=== PATIENT | male | born 1955 ===

== ENCOUNTER → 2019-12-02 | Outpatient (CLI) | payer OTHER ==
[2019-12-02 17:54] LABS: BASOPHIL # 0.1 10^3/uL (0.0-0.1); BASOPHIL % 0.9 % (0.0-0.2); EOSINOPHIL # 0.2 10^3/uL (0.0-0.2); EOSINOPHIL % 2.7 % (0.0-5.0); LYMPHOCYTES # 2.13 10^3/uL1 (1.0-4.8); LYMPHOCYTES % 26.4 % (24.0-44.0); MEAN CORP HGB 28.3 pg (26-34); MONOCYTES # 0.6 10^3/uL (0.3-0.8); MONOCYTES % 7.3 % (5.0-12.0); NEUTROPHILS % 62.3 % (41.0-85.0); PLATELET COUNT 279 10^3/uL (150-400); RED CELL DISTRIBUTION WIDTH 17.1 % (11.5-14.5)
[2019-12-02 17:57] LABS: CALCIUM 9.2 mg/dL (8.4-10.5); CARBON DIOXIDE 29.8 mmol/L (20.0-32)
== END | disposition home or self-care (01) ==
LOC: NPLAB 17:04
PROVIDERS: ATTEND Internal Medicine
DX: J44.9 Chronic obstructive pulmonary disease, unspecified (principal); R56.1 Post traumatic seizures; I69.30 Unspecified sequelae of cerebral infarction; E11.9 Type 2 diabetes mellitus without complications
CPT/HCPCS: 36415; 80048; 80177; 85025

== ENCOUNTER → 2020-06-18 | Outpatient (CLI) | payer OTHER | END | disposition home or self-care (01) | LOC: NPLAB 14:50 | PROVIDERS: ATTEND Internal Medicine | DX: R89.5 Abnormal microbiological findings in specimens from other organs, systems and tissues (principal) | CPT/HCPCS: 87070; 87077; 87186 ==